=== PATIENT | male | born 1940 | race Caucasian/White ===

== ENCOUNTER 2022-04-20 10:52 | Day surgery (SDC) | payer OTHER ==
[2022-04-20] MEDS ORDERED: NA CHLORIDE 0.9% 250 ML ONE (11:07)
[2022-04-20 11:34] VITALS: BMI 23.7
[2022-04-20 14:13] VITALS: BP 132/50; TEMP 97; O2SAT 99
[2022-04-20 15:23] LABS: MPV 8.3 fL (7.6-11.3)
== END 2022-04-20 15:15 | disposition home or self-care (01) ==
LOC: DS 10:52
PROVIDERS: ATTEND Internal Medicine Hematology & Oncology
DX: C92.A1 Acute myeloid leukemia with multilineage dysplasia, in remission (principal); D61.818 Other pancytopenia; D64.81 Anemia due to antineoplastic chemotherapy; D69.59 Other secondary thrombocytopenia
CPT/HCPCS: 36415; 86900; 86850; 85049; 86901; 36430; J7050; P9073